=== PATIENT | female | born 1985 | race Caucasian/White ===

== ENCOUNTER 2018-02-12 18:02 | Emergency (ER) | payer BC, MEDICAID ==
[~2018-02-12] VITALS: Ht 157.5 cm; Wt 77.0 kg
[~2018-02-12 18:02] MED LIST: AMOXICILLIN875 MG OR; BACTRIM DS1 TAB PO; CIPROFLOXACN500 MG PO; CLINDAMYCIN300 MG OR; FLUZONE SPLT1 M1 IM; IBUPROFEN800 MG OR; MACROBID100 MG PO; MIRENA IU; NITROFURANTN100 MG PO; PERCOCET 5/325M1 TAB OR; PRENATAL1 TAB PO; ZOFRAN ODT4 MG PO
[2018-02-12] MEDS ORDERED: TORADOL PO (19:04)
[2018-02-12 19:22] VITALS: BP 136/80
== END 2018-02-12 19:27 | disposition home or self-care (01) | DRG 563 ==
LOC: ED 18:02
DX: S62.637A Displaced fracture of distal phalanx of left little finger, initial encounter for closed fracture (principal); W22.09XA Striking against other stationary object, initial encounter; Y93.89 Activity, other specified; Y92.009 Unspecified place in unspecified non-institutional (private) residence as the place of occurrence of the external cause